=== PATIENT | female | born 1990 | race African-American/Black ===

== ENCOUNTER 2021-06-27 05:40 | Inpatient (IN) | payer OTHER ==
[~2021-06-27 05:40] MED LIST: CITRIC ACID/SODIUM CITRATE 30 ML UNIT-DOSE CUP PO ONE; ELECTROLYTE-148 SOLN 500 ML IV ONE
[2021-06-27 06:28] VITALS: BMI 45.7
[2021-06-27 08:08] LABS: HIV INTERPRETATION NEGATIVE (NEGATIVE)
[2021-06-27] MEDS ORDERED: MIDAZOLAM HCL 2 MG/2 ML SINGLE DOSE VIAL ONE (09:26)
[2021-06-27] MEDS ORDERED: OXYTOCIN 10 UNITS/ML VIAL ONE (09:29)
[2021-06-27] MEDS ORDERED: FLUMAZENIL 0.5 MG/5 ML VIAL ONE (09:34)
[2021-06-27] MEDS: OXYTOCIN 20 UNITS in 0.9% NS 20 UNIT/1,000 ML INFUS.BAG IV SCH ×2 (10:00→19:01)
[2021-06-27] MEDS ORDERED: ACETAMINOPHEN 325 MG TABLET (FP) PO PRN (10:06)
[2021-06-27] MEDS ORDERED: METHYLERGONOVINE MALEATE 0.2 MG/1 ML AMP IM PRN (10:06)
[2021-06-27] MEDS ORDERED: IBUPROFEN 800 MG/8 ML IJ IVPB PRN (10:06)
[2021-06-27] MEDS ORDERED: ACETAMINOPHEN 1000 MG/100 ML BAG IVPB ONE (10:40)
[2021-06-27] MEDS ORDERED: OXYTOCIN 20 UNITS in 0.9% NS 20 UNIT/1,000 ML INFUS.BAG IV ONE (10:50)
[2021-06-27] MEDS ORDERED: ACETAMINOPHEN INJECTION 100 ML IVPB ONE (10:50)
[2021-06-27] MEDS ORDERED: ONDANSETRON 4 MG/2 ML VIAL ONE (15:01)
[2021-06-27] MEDS ORDERED: ONDANSETRON 4 MG/2 ML VIAL IVPUSH PRN (15:25)
[2021-06-27] MEDS ORDERED: oxyCODONE HCL 5 MG TABLET PO PRN (22:06)
[2021-06-28] MEDS: SENNOSIDES/DOCUSATE COMBO (SENNA PLUS) TABLET (UD) PO PRN ×2 (04:00→23:36)
[2021-06-28] MEDS: oxyCODONE HCL 5 MG TABLET PO PRN ×4 (04:00→20:25)
[2021-06-28] MEDS: ELECTROLYTE-148 SOLN 1,000 ML IV SCH ×2 (04:26→20:14)
[2021-06-28 06:57] LABS: BASO % 0.2 % (0-2.0); EOS % 3.8 % (0-4.5); HEMATOCRIT 29.7 % (32.4-45.2); HEMOGLOBIN 9.7 GM/dL (10.7-15.3); LYMPH % 21.7 % (8-40); MCH 28.2 pg (25.7-33.7); MCHC 32.8 g/dl (32.0-36.0); MEAN PLT VOLUME 10.2 fl (7.5-11.1); MONO % 6.5 % (3.8-10.2); NEUT % 67.8 % (42.8-82.8); PLATELET COUNT 153 10^3/uL (134-434); RBC 3.46 M/mm3 (3.60-5.2); WHITE BLOOD COUNT 10.6 K/mm3 (4.0-10.0)
[2021-06-28] MEDS: SIMETHICONE 80 MG TAB.CHEW (FP) PO PRN ×2 (08:41→12:51)
[2021-06-28] MEDS ORDERED: predniSONE 10 MG TABLET (UD) PO ONE ×2 (08:45→18:34)
[2021-06-28] MEDS: PRENATAL VITAMINS W/ FOLIC ACID TABLET (FP) PO SCH (09:25)
[2021-06-28] MEDS ORDERED: BISACODYL 10 MG SUPP.RECT RC PRN (10:06)
[2021-06-28] MEDS: IBUPROFEN 600 MG TABLET (FP) PO PRN (16:02)
[2021-06-28] MEDS: guaiFENesin 200 MG/10 ML 10 ML UNIT-DOSE CUPS PO PRN (17:25)
[2021-06-28] MEDS: OXYTOCIN 20 UNITS in 0.9% NS 20 UNIT/1,000 ML INFUS.BAG IV SCH (20:14)
[2021-06-29] MEDS: SIMETHICONE 80 MG TAB.CHEW (FP) PO PRN ×2 (02:22→09:50)
[2021-06-29] MEDS: IBUPROFEN 600 MG TABLET (FP) PO PRN (02:23)
[2021-06-29] MEDS: oxyCODONE HCL 5 MG TABLET PO PRN (03:59)
[2021-06-29] MEDS ORDERED: predniSONE 5 MG/5 ML ORAL SOLN- UNIT-DOSE CUP PO ONE (09:00)
[2021-06-29] MEDS: PRENATAL VITAMINS W/ FOLIC ACID TABLET (FP) PO SCH (09:50)
[2021-06-29] MEDS: guaiFENesin 200 MG/10 ML 10 ML UNIT-DOSE CUPS PO PRN (09:50)
[2021-06-29] MEDS ORDERED: diphenhydrAMINE HCL 25 MG CAPSULE (FP) PO ONE (10:00)
[2021-06-29] MEDS ORDERED: predniSONE 10 MG TABLET (UD) PO ONE (10:00)
[2021-06-29 14:27] VITALS: BP 144/86; PULSE 102; TEMP 97.8
== END 2021-06-29 13:00 | disposition home or self-care (01) | DRG 540 ==
LOC: JLDR 05:40 → J3W 11:10
PROVIDERS: ADMIT Obstetrics & Gynecology; ATTEND Obstetrics & Gynecology
PROC: 10D00Z1 Extraction of Products of Conception, Low, Open Approach (ICD-10-PCS; principal; 2021-06-27)
PROC: 0UL70ZZ Occlusion of Bilateral Fallopian Tubes, Open Approach (ICD-10-PCS; 2021-06-27)
DX: O34.211 Maternal care for low transverse scar from previous cesarean delivery (principal); O26.62 Liver and biliary tract disorders in childbirth; K83.1 Obstruction of bile duct; O24.420 Gestational diabetes mellitus in childbirth, diet controlled; O99.214 Obesity complicating childbirth; E66.01 Morbid (severe) obesity due to excess calories; L12.9 Pemphigoid, unspecified; Z30.2 Encounter for sterilization; Z3A.38 38 weeks gestation of pregnancy; Z37.0 Single live birth
CPT/HCPCS: 36415; 80053; 82962; 85025; 85610; 85730; 86780; 86850; 86900; 86901; 87389; 88302-TC; 88307-TC; C9803; J0131; U0003; U0005